=== PATIENT | female | born 2005 | race Asian ===

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

== ENCOUNTER 2023-01-20 07:38 | Emergency (ER) | payer BC ==
[~2023-01-20] VITALS: Ht 154.9 cm; Wt 82.0 kg
[2023-01-20] MEDS ORDERED: METHYLPREDNISOLONE SOD SUCC 125 MG/2 ML VIAL IV STA (07:53)
[2023-01-20] MEDS ORDERED: FAMOTIDINE 20MG TABLET PO ONE (08:00)
[2023-01-20] MEDS ORDERED: DIPHENHYDRAMINE 50MG/ML VIAL IV ONE (08:00)
[2023-01-20] MEDS ORDERED: P20 MT (09:55)
[2023-01-20 10:00] VITALS: BP 104/61
== END 2023-01-20 10:29 | disposition home or self-care (01) ==
LOC: ER 07:54
DX: T78.40XA Allergy, unspecified, initial encounter (principal); X58.XXXA Exposure to other specified factors, initial encounter; J45.909 Unspecified asthma, uncomplicated
CPT/HCPCS: 96374; 96375; 99284; J1200; J2930; Z7610

== ENCOUNTER → 2023-02-18 | Outpatient (CLI) | payer BC ==
[~2023-02-18] MED LIST: P20 MT
[2023-02-18 14:32] LABS: BASOPHILS % 0.8 % (0.0-2.0); EOSINOPHILS % 2.8 % (0.0-5.0); HEMATOCRIT. 36.5 % (36.0-48.0); HEMOGLOBIN. 12.4 g/dL (12.0-16.0); LYMPHOCYTES % 14.6 % (20.0-50.0); MEAN CORPUSCULAR HEMOGLOBIN 28.6 pg (28.0-32.0); MEAN CORPUSCULAR VOLUME 84.3 fL (81.0-99.0); MEAN PLATELET VOLUME 9.1 fl (7.4-10.4); MONOCYTES % 5.1 % (2.0-8.0); NEUTROPHILS % 76.7 % (40.0-76.0); PLATELET 371 x1000/uL (130-400); RED BLOOD CELL COUNT 4.33 mill/uL (4.2-5.4); RED CELL DISTRIBUTION WIDTH 13.2 % (11.6-14.6)
[2023-02-18 14:40] LABS: CHLORIDE 104 mEq/L (98-107)
[2023-02-18 14:54] LABS: HDL CHOLESTEROL 53 mg/dL (40-59); LDL CHOLESTEROL 104 mg/dL (5-100); T4 FREE 0.99 ng/dL (0.76-1.46)
[2023-02-20 09:12] LABS: FOLICLE STIMULATING HORMONE 7.5 mIU/mL (.); LUTEINIZING HORMONE 25.9 mIU/mL (.); PROLACTIN 10.1 ng/mL (4.8-23.3)
== END | disposition home or self-care (01) ==
LOC: LAB 13:41
PROVIDERS: ATTEND Internal Medicine Endocrinology, Diabetes & Metabolism
DX: E04.9 Nontoxic goiter, unspecified (principal); R73.9 Hyperglycemia, unspecified
CPT/HCPCS: 36415; 80053; 80061; 82157; 82533; 82627; 83001; 83002; 83036; 84146; 84402; 84439; 84443; 85025; 86003; 86005; 86376